=== PATIENT | male | born 1950 | race Caucasian/White ===

== ENCOUNTER 2016-04-28 07:49 | Day surgery (SDC) | payer BC, MEDICARE ==
[2016-04-28] MEDS ORDERED: fentaNYL 100 MCG/2 ML SDV ONE (07:58)
[2016-04-28] MEDS ORDERED: Propofol 200 MG/20 ML SDV ONE ×2 (07:58→09:41)
[2016-04-28] MEDS ORDERED: Midazolam 1 MG/ML 2 ML SDV ONE (07:59)
[2016-04-28] MEDS ORDERED: Lactated Ringers 1,000 ML IV SCH (08:15)
[2016-04-28 11:39] VITALS: BP 149/75
--- NOTE | 2016-05-01 08:19 | OR ---
DATE OF PROCEDURE: 04/28/2016 PREOPERATIVE DIAGNOSES: 1. Rolon syndrome. 2. History of colon polyps. POSTOPERATIVE DIAGNOSES: 1. Gastric polyps. 2. Colonic diverticulosis. 3. Rolon syndrome. 4. History of colon polyps. PROCEDURE: 1. Esophagogastroduodenoscopy with biopsy resection of several gastric polyps. 2. Colonoscopy to the cecum. ANESTHESIA: IV anesthesia with monitored anesthesia care. INDICATION: This is a 66-year-old white male who is here for upper and lower endoscopy because of a history of Rolon syndrome. He also has had colon polyps removed in the past. I counseled him for upper and lower endoscopy with possible biopsy and/or polypectomy including risks and alternatives, and he gave his informed consent to proceed. PROCEDURE IN DETAIL: The patient was placed in the left lateral decubitus position. IV anesthesia was administered by the Anesthesia Service. Time-out was held. The flexible video Olympus upper endoscope was passed through his mouth, down his esophagus, and into his stomach. The scope was easily passed through the pylorus into the duodenum , reaching its third portion. The scope was then slowly withdrawn, examining the mucosa throughout. The duodenal mucosa appeared unremarkable. The scope was brought back through the pylorus. The antrum appeared unremarkable. The scope was retroflexed. The most proximal stomach appeared unremarkable. The scope was straightened. We saw several small polyps in the stomach. These were removed with the biopsy forceps. The scope was brought up through the GE junction, which was fairly unremarkable and then up through the unremarkable- appearing esophagus and was removed. Next, a rectal exam was performed, which was unremarkable. The flexible video Olympus colonoscope was introduced through his anus, up his rectum, and out his colon all the way to the cecum. En route, we saw multiple left-sided diverticula. There was no bleeding or inflammation associated with any of them. Once the cecum was reached, the scope was slowly withdrawn examining the mucosa throughout. No additional mucosal abnormalities were noted. The scope was retroflexed in the rectum with the distal rectum appearing unremarkable. The scope was straightened and removed. He tolerated the procedure well. Kiel Galvan MD /[id number] CHARLI
== END 2016-04-28 11:30 | disposition home or self-care (01) ==
LOC: JP.SDS 07:49
PROVIDERS: ATTEND Surgery
DX: Z12.11 Encounter for screening for malignant neoplasm of colon (principal); K31.7 Polyp of stomach and duodenum; K57.30 Diverticulosis of large intestine without perforation or abscess without bleeding; I25.10 Atherosclerotic heart disease of native coronary artery without angina pectoris; E78.00 Pure hypercholesterolemia, unspecified; E11.9 Type 2 diabetes mellitus without complications; I10 Essential (primary) hypertension; J30.81 Allergic rhinitis due to animal (cat) (dog) hair and dander
CPT/HCPCS: 43239; 45378; J2250; J2704; J3010; J7120; 88305

== ENCOUNTER 2018-05-22 09:35 | Day surgery (SDC) | payer MEDICARE, BC ==
[2018-05-22] MEDS ORDERED: Lactated Ringers 1,000 ML IV SCH (10:15)
[2018-05-22] MEDS ORDERED: Propofol 200 MG/20 ML SDV ONE ×2 (10:57→11:51)
[2018-05-22] MEDS ORDERED: fentaNYL 100 MCG/2 ML SDV ONE (10:57)
[2018-05-22] MEDS ORDERED: Midazolam 1 MG/ML 2 ML SDV ONE (10:57)
[2018-05-22 13:38] VITALS: BP 159/80
--- NOTE | 2018-05-22 16:06 | OR ---
DATE OF PROCEDURE: 05/22/2018 PREOPERATIVE DIAGNOSES: 1. History of colon polyps. 2. Rolon syndrome. 3. History of gastric fundic gland polyps. POSTOPERATIVE DIAGNOSES: 1. Gastroesophageal reflux disease. 2. Gastric polyps. 3. Colonic diverticulosis. 4. Unusual-appearing colon polyp at 30 cm from the anal verge. 5. History of gastric fundic gland polyps. 6. Rolon syndrome. PROCEDURES PERFORMED: 1. Esophagogastroduodenoscopy with antral biopsies for CLOtest and for pathology to look for Helicobacter pylori. 2. Biopsy of several small gastric polyps. 3. Biopsy of gastroesophageal junction. 4. Colonoscopy to the cecum with biopsy and then snare cautery polypectomy of polyp at 30 cm from the anal verge. This is an unusual-appearing polyp. 5. Tattoo of the polypectomy area. SURGEON: Kiel Galvan MD. ANESTHESIA: IV anesthesia with monitored anesthesia care. INDICATION: This 68-year-old white male is referred for upper and lower endoscopies. He has these periodically because of a history of Rolon syndrome. He has a history of fundic gland polyps of the stomach. He has a history of colon polyps. I counseled him for upper and lower endoscopies with possible biopsy and/or polypectomy, including risks and alternatives, and he gave his informed consent to proceed. DESCRIPTION OF PROCEDURE: The patient was placed in the left lateral decubitus position. IV anesthesia was administered by the Anesthesia Service. Time-out was held. The flexible video Olympus upper endoscope was passed through his mouth, down his esophagus, and into his stomach. The scope was easily passed through the pylorus into the duodenum , reaching its third portion. The scope was then slowly withdrawn examining the mucosa throughout. The duodenal mucosa appeared unremarkable. The scope was brought back up through the pylorus and into the antrum. The antrum appeared unremarkable. We did obtain antral biopsies for CLOtest and for pathology to look for Helicobacter pylori. Of interest, he has a history of fundic gland polyps. We did see several in the body of the stomach, some of which were removed with the biopsy forceps. The scope was retroflexed. The most proximal stomach appeared unremarkable. The scope was straightened and brought up to the GE junction. This was abnormal in that the Z-line was not straight with fingers of gastric mucosa going proximally up into the esophagus. We obtained biopsies of the distal esophagus. The scope was then brought up through the remainder of the esophagus, which otherwise appeared unremarkable and it was removed. Next, a rectal exam was performed, which was unremarkable. The flexible video Olympus colonoscope was introduced through his anus, up his rectum and out his colon all the way to the cecum. En route, we saw multiple left-sided diverticula. There was no bleeding or inflammation associated with any of them. The scope was then slowly withdrawn examining the mucosa throughout. At about 30 cm from the anal verge, we saw an odd- looking polyp. It had a broad base and was pedunculated. It had an erythematous hue to it with a white plaque associated with it. We initially biopsied this and then placed a snare about its base and removed it. We cauterized the area of the polypectomy as there was little bleeding. The scope was then withdrawn further with no other lesions, other than the previously mentioned diverticula, seen. The scope was retroflexed in the rectum with the distal rectum appearing unremarkable. The scope was straightened and removed. He tolerated the procedure well. Kiel Galvan MD /[id number] CHARLI
== END 2018-05-22 13:45 | disposition home or self-care (01) ==
LOC: JP.SDS 09:35
PROVIDERS: ATTEND Surgery
DX: Z12.11 Encounter for screening for malignant neoplasm of colon (principal); K63.5 Polyp of colon; K57.30 Diverticulosis of large intestine without perforation or abscess without bleeding; K31.7 Polyp of stomach and duodenum; K21.9 Gastro-esophageal reflux disease without esophagitis; K20.9 Esophagitis, unspecified; I12.9 Hypertensive chronic kidney disease with stage 1 through stage 4 chronic kidney disease, or unspecified chronic kidney disease; E11.22 Type 2 diabetes mellitus with diabetic chronic kidney disease; N18.3 Chronic kidney disease, stage 3 (moderate); E78.5 Hyperlipidemia, unspecified; Z86.010 Personal history of colon polyps; Z87.19 Personal history of other diseases of the digestive system; Z15.09 Genetic susceptibility to other malignant neoplasm; Z88.2 Allergy status to sulfonamides
CPT/HCPCS: 43239; 45381; 45385; 88305; J2250; J2704; J3010; J7120

== ENCOUNTER 2019-01-06 06:01 | Day surgery (SDC) | payer MEDICARE, BC ==
[2019-01-06] MEDS ORDERED: Lactated Ringers 1,000 ML IV SCH (06:30)
[2019-01-06] MEDS ORDERED: Nozin Nasal Sanitizer NASBOTH ONE (06:45)
[2019-01-06] MEDS ORDERED: Bupivacaine 0.5% 30 ML SDV ONE ×2 (07:02→07:32)
[2019-01-06] MEDS ORDERED: Povidone-Iodine 10% Soln 118.25 ML Bottle ONE (07:23)
[2019-01-06] MEDS ORDERED: ceFAZolin 2 GM in Sodium Chloride 0.9% 50 ML IV ONE (07:30)
[2019-01-06] MEDS ORDERED: ceFAZolin 2 GM in Premix Bag 1 BAG IV ONE (07:30)
[2019-01-06] MEDS ORDERED: Midazolam 1 MG/ML 2 ML SDV ONE (07:31)
[2019-01-06] MEDS ORDERED: fentaNYL 100 MCG/2 ML SDV ONE (07:31)
[2019-01-06] MEDS ORDERED: Propofol 200 MG/20 ML SDV ONE ×4 (07:31→09:55)
[2019-01-06] MEDS ORDERED: Lactated Ringers 1,000 ML ONE (09:19)
[2019-01-06] MEDS ORDERED: fentaNYL 250 MCG/5 ML SDV ONE (10:59)
[2019-01-06] MEDS ORDERED: Acetaminophen/oxyCODONE 325-5 MG Tab PO PRN (11:27)
[2019-01-06 11:30] VITALS: BP 163/96; PULSE 68
--- NOTE | 2019-01-17 09:19 | OR ---
DATE OF PROCEDURE: 01/06/2019 SURGEON: Joselito Miguel MD PREOPERATIVE DIAGNOSIS: Complete rotator cuff tear, left shoulder, chronic, recurrent. POSTOPERATIVE DIAGNOSIS: Complete rotator cuff tear, left shoulder, chronic, recurrent. PROCEDURE: Arthroscopic repair, left rotator cuff. ANESTHESIA: Interscalene block with general. INDICATIONS: Mr. Meeks is a 68-year-old gentleman with a history of persistent left shoulder pain and weakness. He has a history of prior rotator cuff repair. Examination and MRI imaging are consistent with recurrent tear of the rotator cuff with retraction. He now presents for arthroscopic repair of the rotator cuff with possible open repair as well as the possible addition of soft tissue augmentation as needed. Risks, benefits, potential complications of the procedure were discussed. DESCRIPTION OF PROCEDURE: After adequate anesthesia was obtained, the patient was placed in the lateral decubitus position and secured with the beanbag positioner. The left shoulder and arm were prepped and draped in a sterile fashion and 10 pounds of traction was placed in the shoulder traction unit. A standard posterior portal was established. Glenohumeral joint was inspected. This revealed osteoarthritis of the glenohumeral joint including full- thickness articular cartilage loss, on portion of the humeral head, and near full thickness loss in the central portion of the glenoid, particularly anteriorly. Mild degenerative labrum. Subscapularis was intact. The rotator cuff revealed recurrent tear with moderate retraction. Chronic tear of the biceps tendon also noted. Anterior portal was established and mild chondroplasty was performed and debridement of the glenoid, glenoid labrum, and humeral head. The scope was then repositioned into the subacromial space. Cuff tear was again identified with only moderate retraction. Evidence of previous repair was present with sutures still anchored into the greater tuberosity. The sutures were debrided with the shaver. The bursa was cleared for better visualization and the level of a previous acromioplasty was evaluated. Only minor revision was done of this. The cuff was mobilized and a grasper was used to evaluate the ability to repair back down onto the footprint. The cuff could be mobilized to reattach this onto the area lateral to the articular surface. A rafia was used to lightly decorticate the superior surface of the greater tuberosity and a shaver was used to lightly roughen the undersurface of the cuff. A separate stab incision was made for placement of 2 Mitek Healix anchors, one anterior and one posterior. All 4 limbs of each of the suture pairs were brought up through the cuff approximately a centimeter from its edge using the [employer] device. These were then tied down in standard arthroscopic technique. One pair of each of the anterior and posterior anchor sets were then utilized for a suture bridge. These were passed through a Healix lateral suture knotless anchor. A tunnel was made just off the edge of the tuberosity and the anchor was then screwed into position securing the lateral row. The sutures were cut. The arm was rotated to internal external rotation and it was determined that the posterior portion of the repair still had a slight free flap, which was not apposed adequately to the tuberosity. An additional anchor was placed and one suture of each of the suture pairs were brought up through the cuff and tied down in a simple knot technique securing the posterior edge. Repair was again evaluated and found to be solid. Shoulder was drained, port sites were closed in a standard fashion, and a sterile dressing was applied. The patient tolerated the procedure well. There were no complications and was taken from the operating room in stable condition. Joselito Miguel MD /[id number]
== END 2019-01-06 12:00 | disposition home or self-care (01) ==
LOC: JP.SDS 06:01
PROVIDERS: ATTEND Specialist
DX: M75.122 Complete rotator cuff tear or rupture of left shoulder, not specified as traumatic (principal); M19.012 Primary osteoarthritis, left shoulder; S46.212A Strain of muscle, fascia and tendon of other parts of biceps, left arm, initial encounter; I25.10 Atherosclerotic heart disease of native coronary artery without angina pectoris; I11.0 Hypertensive heart disease with heart failure; I50.9 Heart failure, unspecified; I48.92 Unspecified atrial flutter; E11.9 Type 2 diabetes mellitus without complications; E78.5 Hyperlipidemia, unspecified; J45.20 Mild intermittent asthma, uncomplicated; X58.XXXA Exposure to other specified factors, initial encounter; Z95.5 Presence of coronary angioplasty implant and graft; Z79.01 Long term (current) use of anticoagulants; Z79.84 Long term (current) use of oral hypoglycemic drugs; Z79.899 Other long term (current) drug therapy
CPT/HCPCS: 29827; A9270; C1713; J2250; J2704; J3010; J3490; J7120

== ENCOUNTER 2019-02-28 23:08 | Emergency (ER) | payer MEDICARE, BC ==
[2019-02-28] MEDS ORDERED: Lidocaine 2% Jelly 10 ML Urojet MUCMEM ONE (23:16)
[2019-02-28 23:27] VITALS: BP 164/71; PULSE 63
[2019-02-28] MEDS ORDERED: Ibuprofen 600 MG Tab PO ONE (23:29)
[2019-02-28] MEDS ORDERED: Acetaminophen 500 MG Tab PO ONE (23:29)
[2019-02-28] MEDS ORDERED: Diphtheria,Pertussis(Acell),Tetanus Vaccine 0.5 ML SDV IM ONE (23:33)
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
== END 2019-03-01 | disposition home or self-care (01) ==
LOC: JP.ED 23:08
DX: T25.231A Burn of second degree of right toe(s) (nail), initial encounter (principal); T25.121A Burn of first degree of right foot, initial encounter; Z23 Encounter for immunization; I10 Essential (primary) hypertension; E11.9 Type 2 diabetes mellitus without complications; E78.00 Pure hypercholesterolemia, unspecified; M19.90 Unspecified osteoarthritis, unspecified site; Z91.048 Other nonmedicinal substance allergy status; Z91.013 Allergy to seafood; Z79.84 Long term (current) use of oral hypoglycemic drugs; Z79.01 Long term (current) use of anticoagulants; Z79.899 Other long term (current) drug therapy; X19.XXXA Contact with other heat and hot substances, initial encounter
CPT/HCPCS: 90471; 90715; 99282; 99283; A9270

== ENCOUNTER 2020-12-16 09:03 | Day surgery (SDC) | payer MEDICARE, BC ==
[2020-12-16] MEDS ORDERED: Sodium Chloride 0.9% 1,000 ML IV SCH (09:30)
[2020-12-16] MEDS ORDERED: fentaNYL 100 MCG/2 ML SDV ONE (09:39)
[2020-12-16] MEDS ORDERED: Propofol 200 MG/20 ML SDV ONE ×2 (09:39→11:43)
[2020-12-16] MEDS ORDERED: Midazolam 1 MG/ML 2 ML SDV ONE (09:39)
[2020-12-16 12:34] VITALS: BP 144/84; PULSE 69
--- NOTE | 2020-12-17 08:31 | OR ---
DATE OF PROCEDURE: 12/16/2020 SURGEON: Morgan Alston MD PROCEDURES: 1. Esophagogastroduodenoscopy. 2. Colonoscopy. FINDINGS: 1. Approximately 3 mm duodenal polyp, completely removed using cold biopsy forceps. 2. No other gross abnormalities. COMPLICATIONS: None. 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 PREOPERATIVE DIAGNOSIS: Rolon syndrome. POSTOPERATIVE DIAGNOSIS: Rolon syndrome. RISKS: Risks, benefits, alternatives, and limitations including but not limited to infection bleeding, perforation, false positives, false negatives were explained to the patient preoperatively. We also discussed recommended followup with EGD and colonoscopy per Rolon protocol with the patient up to date. PROCEDURE IN DETAIL: The patient was placed in left lateral decubitus position. The EGD scope was introduced and advanced atraumatically to second part of the duodenum. Within the duodenal bulb itself was a very small polypoid-type lesion. This was then completely removed using cold biopsy forceps. In the stomach, there was no gastritis, no ulceration. The GE junction did show 1 cm salmon-colored tongue protrusion concerning for reflux disease. We biopsied the colon with the other three quadrants using cold biopsy forceps. The air was removed. Colonoscopy was performed next. Digital rectal exam was performed next. The scope was introduced and advanced atraumatically through a tortuous sigmoid colon to the ileocecal valve. A photo was taken. The scope was brought back to the ascending, transverse, descending colon, and retroflexed. On exam the patient was noted to have diverticulosis which was mild, limited to sigmoid colon without evidence of diverticulitis or bleeding. There were no polyps, no masses, no old or new blood. No areas of concern with respect to inflammation. No abnormalities on retroflex. Greater than 8 minutes was spent removing the scope. Prep was approximately 90% luminal surface could be seen. The patient tolerated procedure well. Morgan Alston MD /[id number]
== END 2020-12-16 12:57 | disposition home or self-care (01) ==
LOC: JP.SDS 09:03
PROVIDERS: ATTEND Surgery
DX: Z12.11 Encounter for screening for malignant neoplasm of colon (principal); K31.7 Polyp of stomach and duodenum; Z15.09 Genetic susceptibility to other malignant neoplasm; K57.30 Diverticulosis of large intestine without perforation or abscess without bleeding; J45.909 Unspecified asthma, uncomplicated; I50.9 Heart failure, unspecified; E11.22 Type 2 diabetes mellitus with diabetic chronic kidney disease; N18.9 Chronic kidney disease, unspecified; I13.0 Hypertensive heart and chronic kidney disease with heart failure and stage 1 through stage 4 chronic kidney disease, or unspecified chronic kidney disease; K22.89 Other specified disease of esophagus
CPT/HCPCS: 43239; G0105; J2250; J2704; J3010; J7030

== ENCOUNTER 2023-05-04 21:07 | Emergency (ER) | payer MEDICARE, BC ==
[2023-05-04 21:27] VITALS: BP 108/65; PULSE 78
[2023-05-04 22:03] LABS: BASOPHILS PERCENT AUTO 0.1 % (0.1-1.3); EOSINOPHILS ABSOLUTE AUTO 0.06 K/uL (0.00-0.40); EOSINOPHILS PERCENT AUTO 0.9 % (0.0-5.4); HEMATOCRIT 29.6 % (38.4-49.7); HEMOGLOBIN 9.8 g/dL (12.9-16.9); IMMATURE GRAN ABSOLUTE AUTO 0.03 K/uL (0.00-0.23); IMMATURE GRAN PERCENT AUTO 0.4 % (0.0-0.7); LYMPHOCYTES ABSOLUTE AUTO 1.04 K/uL (0.8-3.3); LYMPHOCYTES PERCENT AUTO 14.9 % (11.4-47.7); MEAN CORPUSCULAR HEMOGLOBIN 34.4 pg (31.6-35.5); MEAN CORPUSCULAR HGB CONC 33.1 g/dL (31.6-35.5); MEAN CORPUSCULAR VOLUME 103.9 fL (81.4-99.0); MONOCYTES ABSOLUTE AUTO 0.65 K/uL (0.20-0.90); MONOCYTES PERCENT AUTO 9.3 % (3.3-12.6); NEUTROPHILS PERCENT AUTO 74.4 % (40.0-78.1); PLATELET COUNT,PLT 163 K/uL (130-375); RED BLOOD CELL COUNT 2.85 M/uL (4.14-5.76)
[2023-05-04 22:04] LABS: BASOPHILS ABSOLUTE AUTO 0.01 K/uL (0.00-0.10)
[2023-05-04 22:25] LABS: A/G RATIO 0.8 (1.2-2.2); ALANINE AMINOTRANSFERASE,ALT 27 U/L (12-78); ALBUMIN 3.3 g/dL (3.4-5.0); ALKALINE PHOSPHATASE 115 U/L (46-116); ASPARTATE AMNIOTRANSFERASE,AST 23 U/L (15-37); BILIRUBIN TOTAL 1.4 mg/dL (0.2-1.0); CALCIUM 8.8 mg/dL (8.5-10.1); CARBON DIOXIDE,CO2 19 mmol/L (21-32); CHLORIDE,CL 98 mmol/L (100-108); ESTIMATED GFR 12 mL/min (>60); GLUCOSE RANDOM 193 mg/dL (74-106); PROTEIN TOTAL,TP 7.4 g/dL (6.4-8.2); SODIUM,NA 129 mmol/L (140-148)
[2023-05-04 22:33] LABS: ANION GAP 19.9 mmol/L (5.0-14.0); BLOOD UREA NITROGEN,BUN 89 mg/dL (7-18); CREATININE 4.8 mg/dL (0.8-1.3); POTASSIUM,K 7.9 mmol/L (3.6-5.2)
[2023-05-04] MEDS ORDERED: Glucagon,Human Recombinant 1 MG Vial IM PRN (22:55)
[2023-05-04] MEDS ORDERED: 50% Dextrose in Water 50 ML Syringe IVPUSH PRN (22:55)
[2023-05-04] MEDS: Sodium Polystyrene Sulfonate 15 GM/60 ML Susp 60 ML Bot PO ONE (23:24)
[2023-05-04] MEDS: Sodium Chloride 0.9% 1,000 ML IV SCH (23:25)
[2023-05-04] MEDS: 50% Dextrose in Water 50 ML Syringe IVPUSH ONE (23:27)
[2023-05-04] MEDS: Insulin Regular, Human 100 Units/ML 3 ML Vial IVPUSH ONE (23:33)
[2023-05-05 00:31] LABS: CALCIUM 8.9 mg/dL (8.5-10.1); EST CRCL DRUG DOSING (CG) 14.3 mL/min
[2023-05-05 00:41] LABS: ANION GAP 19.5 mmol/L (5.0-14.0); POTASSIUM,K 7.5 mmol/L (3.6-5.2)
[2023-05-05 00:42] LABS: CREATININE 4.9 mg/dL (0.8-1.3)
== END 2023-05-05 01:10 | disposition other institution (70) ==
LOC: JP.ED 21:07
DX: I13.0 Hypertensive heart and chronic kidney disease with heart failure and stage 1 through stage 4 chronic kidney disease, or unspecified chronic kidney disease (principal); I50.42 Chronic combined systolic (congestive) and diastolic (congestive) heart failure; N18.4 Chronic kidney disease, stage 4 (severe); R18.8 Other ascites; E87.5 Hyperkalemia; E11.22 Type 2 diabetes mellitus with diabetic chronic kidney disease; Z79.82 Long term (current) use of aspirin; Z79.899 Other long term (current) drug therapy; Z91.048 Other nonmedicinal substance allergy status; Z88.2 Allergy status to sulfonamides; Z91.013 Allergy to seafood
CPT/HCPCS: 36415; 80048; 80053; 82140; 85025; 96361; 96374; 99284; 99285; A9270; J7030; J1815-GY

== ENCOUNTER 2023-05-09 18:40 | Emergency (ER) | payer MEDICARE, BC ==
[2023-05-09 19:01] VITALS: BP 96/68; PULSE 78
[2023-05-09 19:34] LABS: BASOPHILS PERCENT AUTO 0.2 % (0.1-1.3); EOSINOPHILS ABSOLUTE AUTO 0.22 K/uL (0.00-0.40); HEMATOCRIT 27.6 % (38.4-49.7); HEMOGLOBIN 9.2 g/dL (12.9-16.9); IMMATURE GRAN PERCENT AUTO 0.4 % (0.0-0.7); LYMPHOCYTES ABSOLUTE AUTO 1.07 K/uL (0.8-3.3); LYMPHOCYTES PERCENT AUTO 19.5 % (11.4-47.7); MEAN CORPUSCULAR HEMOGLOBIN 34.1 pg (31.6-35.5); MEAN CORPUSCULAR HGB CONC 33.3 g/dL (31.6-35.5); MEAN CORPUSCULAR VOLUME 102.2 fL (81.4-99.0); MONOCYTES ABSOLUTE AUTO 0.51 K/uL (0.20-0.90); MONOCYTES PERCENT AUTO 9.3 % (3.3-12.6); NEUTROPHILS ABSOLUTE AUTO 3.67 K/uL (1.0-7.6); NEUTROPHILS PERCENT AUTO 66.6 % (40.0-78.1); PLATELET COUNT,PLT 163 K/uL (130-375); WHITE BLOOD CELL COUNT,WBC 5.5 K/uL (3.2-11.0)
[2023-05-09 19:35] LABS: BASOPHILS ABSOLUTE AUTO 0.01 K/uL (0.00-0.10); IMMATURE GRAN ABSOLUTE AUTO 0.02 K/uL (0.00-0.23)
[2023-05-09 19:49] LABS: CALCIUM 8.4 mg/dL (8.5-10.1); EST CRCL DRUG DOSING (CG) 17.09 mL/min; POTASSIUM,K 4.3 mmol/L (3.6-5.2)
[2023-05-09 19:52] LABS: ANION GAP 13.3 mmol/L (5.0-14.0)
[2023-05-09 19:53] LABS: CREATININE 4.1 mg/dL (0.8-1.3)
== END 2023-05-09 20:26 | disposition home or self-care (01) ==
LOC: JP.ED 18:40
DX: E11.65 Type 2 diabetes mellitus with hyperglycemia (principal); I13.0 Hypertensive heart and chronic kidney disease with heart failure and stage 1 through stage 4 chronic kidney disease, or unspecified chronic kidney disease; I50.9 Heart failure, unspecified; N18.30 Chronic kidney disease, stage 3 unspecified; E78.00 Pure hypercholesterolemia, unspecified; Z86.16 Personal history of COVID-19; Z79.899 Other long term (current) drug therapy; Z91.048 Other nonmedicinal substance allergy status; Z91.013 Allergy to seafood; Z88.2 Allergy status to sulfonamides; Z79.82 Long term (current) use of aspirin; Z79.51 Long term (current) use of inhaled steroids
CPT/HCPCS: 36415; 80048; 82140; 85025; 99284